=== PATIENT | male | born 1990 | race African-American/Black ===

== ENCOUNTER 2025-04-04 21:44 | Emergency (ER) | payer SELFPAY ==
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
[2025-04-04 21:40] VITALS: BP 166/90; PULSE 92; RESP 16; TEMP 37.1; O2SAT 100; BMI 24.5
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
[2025-04-04 23:17] VITALS: BP 142/72; PULSE 99; O2SAT 93
== END 2025-04-04 23:19 | disposition home or self-care (01) ==
PROVIDERS: Emergency Provider Physician Assistant
DX: S09.8XXA Other specified injuries of head, initial encounter (principal); V89.2XXA Person injured in unspecified motor-vehicle accident, traffic, initial encounter
CPT/HCPCS: 70450; 72125; 99284